=== PATIENT | male | born 1955 | race Caucasian/White ===

== ENCOUNTER 2016-05-29 08:53 | Emergency (ER) | payer SELFPAY ==
--- NOTE | 2016-05-29 09:14 | Emergency Department Record ---
History of Present Illness - General Chief complaint: Head Injury Stated complaint: HEAD INJURY Time Seen by Provider: 05/29/16 09:13 Source: Patient Mode of Arrival: Ambulatory Limitations: No limitations - History of Present Illness Initial comments: The patient is here due to injuring his head at work. He hit his head on a garage reject opener after standing up in the back of the truck. He sustained a laceration to the top of the head. There was no LOC or fall after the initial trauma. Presently the patient denies any MUNOZ, nausea, vomiting, or balance issues and he is not on any blood thinners. He does need a Td shot. MD Complaint: Head injury Onset/Timin -: Minutes(s) Mechanism of Injury: Work related injury Loss of Consciousness: No Previous Trauma to this Area: Yes Place: Work Radiation: None Severity: Mild Severity scale (1-10): 1 Quality: Aching Other Injuries: None - Related Data Home Medications Medication Instructions Recorded Confirmed Last Taken Aspirin [Ecotrin] 325 mg PO DAILY 05/29/16 05/29/16 1 Day Ago Allergies/Adverse reactions: Allergies Allergy/AdvReac Type Severity Reaction Status Date / Time Penicillins Allergy HIVES Verified 05/29/16 09:14 Travel Screening - Travel/Exposure Within Last 30 Days Have you traveled within the last 30 days?: No - Travel/Exposure Within Last Year Have you traveled outside the [place] in the last year?: No - Additonal Travel Details Have you been exposed to anyone with a communicable illness?: No - Travel Symptoms Symptom Screening: None Review of Systems Constitutional: Denies: Chills, Fever Eyes: Denies: Eye discharge ENT: Denies: Congestion Respiratory: Denies: Cough, Dyspnea Past Medical History - SOCIAL HISTORY Smoking Status: Former smoker Alcohol Use: Occassional Drug Use: None - RESPIRATORY Hx Respiratory Disorders: No - CARDIOVASCULAR Hx Cardio Disorders: No - NEURO Hx Neuro Disorders: No - GI Hx GI Disorders: No - Hx Genitourinary Disorders: No - ENDOCRINE Hx Diabetes: No Hx Thyroid Disease: No - MUSCULOSKELETAL Hx Arthritis: Yes Family Medical History Any Significant Family History?: Yes Physical Exam - General General Appearance: Alert, Oriented x3, Cooperative, No acute distress - Head Head exam: Normocephalic. negative: Atraumatic, Normal inspection (There is a 4 cm laceration to the top of the scalp area. There is no swelling or bony tenderness.) - Eye Eye exam: Normal appearance, PERRL - ENT ENT exam: TM's normal bilaterally - Neck Neck exam: Normal inspection, Full ROM. negative: Tenderness - Respiratory Respiratory exam: Normal lung sounds bilaterally. negative: Respiratory distress - Cardiovascular Cardiovascular Exam: Regular rate, Normal rhythm, Normal heart sounds - Neurological Neurological exam: Alert, Normal gait, Oriented X3. negative: Abnormal gait, Altered, Motor sensory deficit Course Vital Signs 05/29/16 09:05 Temperature 98.1 F Pulse Rate 94 H Respiratory 20 Rate Blood Pressure 135/98 Pulse Ox 97 - Reevaluation(s) Reevaluation #1: Procedure note: The lac was cleansed with betadine and cleansed with sterile saline. The lac was anesth. with 2 cc Lido 1% with Epi. The lac was then explored and was not deep and not thru the muscle. It was closed with 6 mane without difficulty. 05/29/16 09:32 Reevaluation #2: The patient is doing very well. He denies any MUNOZ, nausea, vomiting, or balance issues. He is very stable for discharge. 05/29/16 09:53 Disposition Disposition: Discharge Clinical Impression: Scalp laceration Qualifiers: Encounter type: initial encounter Qualified Code(s): S01.01XA - Laceration without foreign body of scalp, initial encounter Disposition: Home, Self-Care Condition: (1) Good Instructions: Laceration (ED), Minor Head Injury (ED) Additional Instructions: Please use Tylenol for pain. Keep the lac dry for 2 days then wash daily but no soaking. Have the Mane removed in 10 days. Return to the ER for any problems or signs of infection. Forms: Patient Portal Access Time of Disposition: 09:46
[2016-05-29] MEDS ORDERED: Diph,Pert(Acell),Tet Vac 0.5 ML SYR IM ONE (09:22)
[2016-05-29] MEDS ORDERED: IBUPROFEN 600 MG TABLET PO ONE (09:22)
== END 2016-05-29 09:55 | disposition home or self-care (01) ==
LOC: ER 08:53
DX: S01.01XA Laceration without foreign body of scalp, initial encounter (principal); W22.8XXA Striking against or struck by other objects, initial encounter; Y99.0 Civilian activity done for income or pay
CPT/HCPCS: 12002; 90715; 96372; 99283

== ENCOUNTER 2016-06-08 11:02 | Emergency (ER) | payer SELFPAY ==
--- NOTE | 2016-06-08 11:10 | Emergency Department Record ---
History of Present Illness - General Chief Complaint: Suture removal Stated Complaint: STAPLE REMOVAL Time Seen by Provider: 06/08/16 11:09 Source: Patient Mode of arrival: Ambulatory Limitations: No limitations - History of Present Illness Initial Comments: 61 yo male presents for staple removal. No complaints since DC after a scalp laceration. MD Complaint: Suture/staple removal -: Days(s) (10) Returns Today for: Staple/stitch removal Symptoms Since Prior Visit: No new symptoms Associated Symptoms: None - Related Data Home Medications Medication Instructions Recorded Confirmed Last Taken Aspirin [Ecotrin] 325 mg PO DAILY 05/29/16 06/08/16 1 Day Ago Allergies Allergy/AdvReac Type Severity Reaction Status Date / Time Penicillins Allergy HIVES Verified 05/29/16 09:14 Review of Systems Constitutional: Denies: Chills, Fever Eyes: Denies: Eye discharge, Eye pain, Photophobia, Vision change ENT: Denies: Congestion Respiratory: Denies: Cough Cardiovascular: Denies: Syncope Endocrine: Denies: Fatigue Gastrointestinal: Denies: Nausea, Vomiting Musculoskeletal: Reports: Arthralgia (chronic unchanged shoulder pain) Skin: Denies: Change in color Neurological: Denies: Abnormal gait, Confusion, Headache, Vertigo Hematological/Lymphatic: Denies: Easy bleeding, Easy bruising Past Medical History - SOCIAL HISTORY Smoking Status: Former smoker Alcohol Use: None Drug Use: None - RESPIRATORY Hx Respiratory Disorders: No - CARDIOVASCULAR Hx Cardio Disorders: No - NEURO Hx Neuro Disorders: No - GI Hx GI Disorders: No - Hx Genitourinary Disorders: No - ENDOCRINE Hx Endocrine Disorders: No - MUSCULOSKELETAL Hx Musculoskeletal Disorders: Yes Hx Arthritis: Yes - PSYCH Hx Psych Problems: No - HEMATOLOGY/ONCOLOGY Hx Hematology/Oncology Disorders: No Family Medical History Any Significant Family History?: No Physical Exam - General General Appearance: Alert, Oriented x3, Cooperative, No acute distress Limitations: No limitations - Head Head exam: negative: Atraumatic, Normal inspection Head exam detail: Laceration (healing well with intact mane, no drainage or redness, small amount of scabbing). negative: General tenderness, Hematoma - Eye Eye exam: Normal appearance - ENT ENT exam: Normal exam - Neck Neck exam: Normal inspection - Neurological Neurological exam: Alert, Normal gait, Oriented X3 - Psychiatric Psychiatric exam: Normal affect, Normal mood - Skin Skin exam: Other (healing laceration without drainage or pus) Course - Reevaluation(s) Reevaluation #1: The scalp is healing without complication The mane were removed without difficulty We discussed home care and reasons to return as needed 06/08/16 11:12 Disposition Disposition: Discharge Clinical Impression: Removal of mane Disposition: Home, Self-Care Condition: (1) Good Instructions: Suture Removal (ED) Additional Instructions: Return if you have any concerns about the continued healing of your scalp laceration Forms: Patient Portal Access Time of Disposition: 11:10
== END 2016-06-08 11:14 | disposition home or self-care (01) ==
LOC: ER 11:02
DX: Z48.02 Encounter for removal of sutures (principal)